=== PATIENT | female | born 1995 | race Caucasian/White ===

== ENCOUNTER 2017-09-17 20:06 | Emergency (ER) | payer OTHER ==
[~2017-09-17 20:06] MED LIST: ALTERIL; PROP20TA3 PO; ZYPR2.5T2 PO
== END 2017-09-17 21:16 | disposition left against medical advice (07) ==
LOC: NED 20:06
DX: Z53.21 Procedure and treatment not carried out due to patient leaving prior to being seen by health care provider (principal)
CPT/HCPCS: 99281